=== PATIENT | female | born 1945 | race Caucasian/White ===

== ENCOUNTER 2017-06-22 09:13 | Day surgery (SDC) | payer MEDICARE, OTHER ==
[~2017-06-22] VITALS: Ht 162.6 cm; Wt 62.3 kg
[~2017-06-22 09:13] MED LIST: ALEN70 PO; ASPI81CH PO; CALCAVITD PO; CITRACAL + BON1 EACH; CRANBERRY250 MG; DIPH50; ELET40TA PO; ERGO400 PO; EVAMIST; FISH1000 PO; LEVSOD150 PO; LORA10ER PO; MINIVELLE1 EAC1 TD; NADO20 PO; OMEP20ER PO; PROBIOTIC1 EAC1
[2017-06-22] MEDS ORDERED: LEVSOD137 (09:40)
[2017-06-22] MEDS ORDERED: MELA3 PO (09:41)
== END 2017-06-22 11:55 | disposition home or self-care (01) ==
LOC: ORSCSDS 09:13
PROVIDERS: Internal Medicine Gastroenterology
PROC: 0DBK8ZX Excision of Ascending Colon, Via Natural or Artificial Opening Endoscopic, Diagnostic (ICD-10-PCS; principal; 2017-06-22 10:30)
DX: Z12.11 Encounter for screening for malignant neoplasm of colon (principal); D12.2 Benign neoplasm of ascending colon; Z83.71 Family history of colonic polyps; E03.9 Hypothyroidism, unspecified; K21.9 Gastro-esophageal reflux disease without esophagitis; Z79.82 Long term (current) use of aspirin; Z79.899 Other long term (current) drug therapy
CPT/HCPCS: 88305; J7120

== ENCOUNTER → 2020-03-03 | Outpatient (CLI) | payer MEDICARE ==
[~2020-03-03] MED LIST changes: +LEVSOD137; +MELA3 PO
== END | disposition home or self-care (01) ==
LOC: LAB 10:55 → LAB SHORT 10:55
DX: R10.13 Epigastric pain (principal)
CPT/HCPCS: 87338

== ENCOUNTER → 2020-04-01 | Outpatient (CLI) | payer MEDICARE | END | disposition home or self-care (01) | LOC: LAB 08:20 → LAB SHORT 08:20 | DX: L57.0 Actinic keratosis (principal); B07.8 Other viral warts | CPT/HCPCS: 88305 ==

== ENCOUNTER 2022-06-28 10:04 | Day surgery (SDC) | payer MEDICARE, OTHER ==
[~2022-06-28] VITALS: Ht 165.1 cm; Wt 61.5 kg
[2022-06-28] MEDS ORDERED: ESOM20 (10:30)
[2022-06-28] MEDS ORDERED: ALEN70 (10:30)
[2022-06-28] MEDS ORDERED: Flonase 0.05% N16 GM (10:30)
[2022-06-28 13:53] VITALS: BP 155/89
== END 2022-06-28 12:45 | disposition home or self-care (01) ==
LOC: ORSCSDS 10:04
PROVIDERS: Internal Medicine Gastroenterology
PROC: 0DBH8ZX Excision of Cecum, Via Natural or Artificial Opening Endoscopic, Diagnostic (ICD-10-PCS; principal; 2022-06-28 11:15)
DX: Z12.11 Encounter for screening for malignant neoplasm of colon (principal); Z86.010 Personal history of colon polyps; K52.831 Collagenous colitis; K57.30 Diverticulosis of large intestine without perforation or abscess without bleeding; Z79.899 Other long term (current) drug therapy
CPT/HCPCS: 88305; 88313; J2704; J7120

== ENCOUNTER → 2023-09-14 | Outpatient (CLI) | payer OTHER ==
[~2023-09-14] MED LIST changes: +ALEN70; +ESOM20; +Flonase 0.05% N16 GM
[2023-09-18 03:12] LABS: CALPROTECTIN,FECAL 24 ug/g (<=49); PANCREATIC ELASTASE,FECAL 748 ug/g (>=100)
== END ==
LOC: LAB 07:10 → LAB SHORT 07:10 → LAB FUT 07-12 11:10 → EDSTATUS 07-12 11:10
PROVIDERS: Physician Assistant
DX: R19.7 Diarrhea, unspecified (principal); K52.831 Collagenous colitis
CPT/HCPCS: 82653; 83993

== ENCOUNTER → 2024-03-19 | Outpatient (CLI) | payer OTHER | LOC: LAB 17:54 → LAB SHORT 17:54 | DX: R30.0 Dysuria (principal) | CPT/HCPCS: 87077; 87086; 87186 ==